=== PATIENT | female | born 1960 | race Caucasian/White ===

== ENCOUNTER 2016-12-31 18:10 | Inpatient (IN) | payer OTHER ==
--- NOTE | ~2016-12-31 | HP ---
Unit #: [id number] #: [id number] Patient: RAFAEL ERWIN [id number] [place] [address] [id number] MR#: [id number] NAME: RAFAEL ERWIN. ROOM: P202 Age: 56 Sex: F Admission Date: 12/31/2016 : 1960 Attending Physician: Steven Randolph M.D. Admitting Physician: Steven Randolph M.D. Primary Care Physician: Primary Care Physician No HISTORY AND PHYSICAL HISTORY OF PRESENT ILLNESS Rafael is a 56 year old admitted to [address] [place] [address] because of her continued drug use. She has had other admissions to this facility for the same. PAST MEDICAL HISTORY Long history of opioid abuse to include snorting heroin. PAST SURGICAL HISTORY Nothing reported. ALLERGIES Talwin, Cipro, Haldol, tramadol. SOCIAL HISTORY Smokes two packs per day. Denies alcohol. Admits to a long history of illicit substance abuse to include methamphetamine and heroin. FAMILY HISTORY Medically noncontributory. REVIEW OF SYSTEMS CONSTITUTIONAL: No fever or chills. HEENT: Denies any sore throat, ear pain or runny nose. CARDIOVASCULAR: Denies chest pain, irregular heart rhythm or palpitations. CHEST: Denies shortness of breath or cough. No hemoptysis. GASTROINTESTINAL: Denies nausea, vomiting, diarrhea or chronic constipation. ENDOCRINE: Denies history of increased thirst or urination. No recent significant weight loss or gain. GENITOURINARY: Denies dysuria, frequency, or hematuria. SKIN: Denies any rashes. HEMATOLOGIC: Denies history of increased bleeding or bruising. MUSCULOSKELETAL: Denies any hot, swollen joints. No generalized muscle pain. NEUROLOGIC: Denies problems with vision or speech. No frequent, severe headaches. No numbness, tingling or weakness in any extremities. Denies loss of bladder or bowel control. CURRENT MEDICATIONS Detox protocol PHYSICAL EXAMINATION Unit #: [id number] #: [id number] Patient: RAFAEL ERWIN GENERAL: Alert, well-nourished, in no apparent distress. VITAL SIGNS: Blood pressure 132/56, heart rate 80, respirations 16, temperature 98.6. WEIGHT: 132 pounds. HEIGHT: 5'8". SKIN: Warm and dry without rash or lesion. HEENT: Normocephalic. TMs not viewed. Oral and nasal passages clear. Conjunctivae clear. Pupils equal, round and reactive to light and accommodation. Extraocular movements intact. NECK: Supple without lymphadenopathy or thyromegaly. HEART: Regular rate and rhythm without murmur. LUNGS: Clear. ABDOMEN: Soft, nontender. : Not done. EXTREMITIES: No evidence of cyanosis, clubbing or edema. Moves all extremities without focal deficit. NEUROLOGICAL: Grossly within normal limits. Cranial Nerves: II: Visual gonzalez are intact. III, IV AND : Extraocular movements are intact. Pupils are equal, round and reactive to light. V: Facial sensation is grossly normal. VII: Facial movements and expression are normal. VIII: Auditory acuity grossly intact. IX, X: Uvula is midline. Phonation is normal. XI: Patient shrugs shoulders and turns head normally. XII: Tongue protrudes in the midline. Sensory and Motor Function: Sensory and motor sensation is grossly normal. Motor: moves all extremities well. Coordination: Gait is normal. Deep Tendon Reflexes: Intact. IMPRESSION Psychiatric admission RECOMMENDATIONS PSYCHIATRIC: Per psychiatrist. MEDICAL: I see no contraindications to participating in facility's activities. MEDICAL PROGNOSIS Good. MEDICAL CONDITION Stable. Dictated by... Nat Morin PRadhaARadha-Soledad. for Geovany Tran/nena TD: 01/01/2017 22:54 JOB #: [id number] Unit #: [id number] #: [id number] Patient: RAFAEL ERWIN HISTORY AND PHYSICAL Page 1 of 1 X Nat Morin HISTORY AND PHYSICAL
--- NOTE | ~2016-12-31 | DS ---
Unit #: [id number] #: [id number] Patient: RAFAEL ERWIN [id number] [place] [address] [id number] MR#: [id number] NAME: RAFAEL ERWIN. ROOM: P202 Age: 56 Sex: F Admission Date: 12/31/2016 : 1960 Discharge Date: 01/02/2017 Attending Physician: Steven Randolph M.D. Primary Care Physician: Primary Care Physician No DISCHARGE SUMMARY REASON FOR ADMISSION Rafael is a 56-year-old woman with history of opioid dependence, who came in a mildly confused state, stating that she had relapsed on her drugs and had vague suicidal ideation. She was unable to contract for safety and was admitted for stabilization. DIAGNOSTIC STUDIES LABORATORY RESULTS: Please see hospital chart. HOSPITAL COURSE Rafael was admitted and placed on the opioid detox protocol. She had no further psychosis or suicidal ideation after admission, and participated appropriately in unit groups and activities. She stated her intention to get into a Suboxone program known as the [facility] and on the date of discharge, she contracted for safety with a plan to follow up to this clinic the following day as she had arranged. DISCHARGE DIAGNOSES AXIS I: Opioid dependence with withdrawal, uncomplicated, F11.23. AXIS II: Diagnosis deferred. AXIS III: Opioid withdrawal, resolved. AXIS IV: AXIS V: DISCHARGE INSTRUCTIONS Follow up with Suboxone Clinic at the patient's discretion. DISCHARGE MEDICATIONS None. CONDITION AT DISCHARGE Fair. PROGNOSIS Fair. DIET AND ACTIVITY Ad buffy. Dictated by... Steven Randolph M.D. Unit #: [id number] #: [id number] Patient: RAFAEL ERWIN [facility]/modl TD: 01/02/2017 23:06 JOB #: [id number] DISCHARGE SUMMARY Page 1 of 1 X Steven Randolph MD X DISCHARGE SUMMARY
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
[~2016-12-31 18:10] MED LIST: ACULAR10 ML OS; ALBUTEROL17 GM INH; AMOXICILLIN PO; AUGMENTIN PO; BACITRACIN30 GM TOP; BACTRIM DS TABL1 TA1 PO; CIPRO PO; DIAZEPAM PO; DICLOFENAC PO; FLEXERIL PO; HYDROCODONE-GU480 ML PO; IBUPROFEN PO; LEVAQUIN PO; METHADONE; METHADONE PO; MOBIC PO; NAPROSYN500 MG PO; NEXIUM; NO MEDICATIONS; NORFLEX100 M1 PO; NORVASC PO; OCUFLOX10 ML OS; PHENERGAN PO; POTASSIUM CHLO10 ME1 PO; PREDNISONE PO; REVIA50 MG; ROBAXIN500 MG PO; RONDEC DROPS30 ML PO; SILVADENE TOP; SKELAXIN PO; SOMA PO; TYLENOL #3 PO; VICODIN 5/500 T1 TAB PO; VISTARIL; ZITHROMAX PO; ZOFRAN ODT4 MG PO
[2017-01-01 09:51] LABS: BASOPHIL# 0.1 X10e3 (0-0.3); BASOPHIL% 1.1 % (0-2.5); EOSINOPHIL# 0.1 X10e3 (0-0.7); EOSINOPHIL% 1.6 % (0.0-7.0); LYMPHOCYTE# 2.2 X10e3 (1.0-3.5); LYMPHOCYTE% 24.4 % (17.0-45.0); MEAN CELL VOLUME 85.7 FL (83-96); MEAN CORPUSCULAR HEMOGLOBIN 28.5 PG (28-34); MEAN CORPUSCULAR HGB CONC 33.3 g/dL (30-36); MEAN PLATELET VOLUME 8.4 FL (6.5-11.5); MONOCYTE# 0.6 X10e3 (0-1.0); MONOCYTE% 6.3 % (3.0-12.0); NEUTROPHIL# 6.1 X10e3 (1.5-7.1); NEUTROPHIL% 66.6 % (40-75); PLATELET COUNT 386 X10e3 (140-420); RED BLOOD COUNT 4.91 X10e (3.90-5.30); RED CELL DISTRIBUTION WIDTH 13.3 % (11.0-15.5); WHITE BLOOD COUNT 9.1 X10e3 (4.0-10.5)
[2017-01-01 09:57] LABS: DIFF IND NO
[2017-01-01 10:09] LABS: ALBUMIN SERUM 4.3 g/dL (3.5-5.0); BILIRUBIN,TOTAL 0.9 mg/dL (0.2-2.0); BUN/CREATININE RATIO 14.16; CALCIUM SERUM 10.2 mg/dL (8.4-10.2); CREATININE SERUM 1.2 mg/dL (0.6-1.4); GLOM FILT RATE Estimated 49.8 mL/min (>60); POTASSIUM 4.3 mmol/L (3.5-5.1); PROTEIN TOTAL SERUM 7.9 g/dL (6.0-8.3)
[2017-01-02 13:32] LABS: AMPHETAMINE POS (NEG); BARBITURATES NEG (NEG); BENZODIAZEPINES POS (NEG); COCAINE NEG (NEG); MARIJUANA NEG (NEG); OPIATES POS (NEG); TRICYCLIC ANTIDEPRESSANTS NEG (NEG); U METHADONE NEG (NEG)
== END 2017-01-02 11:25 | DRG 897 ==
LOC: P2S 18:10
PROVIDERS: Psychiatry & Neurology Psychiatry
PROC: HZ2ZZZZ Detoxification Services for Substance Abuse Treatment (ICD-10-PCS; principal; 2016-12-31)
DX: F11.23 Opioid dependence with withdrawal (principal); F10.10 Alcohol abuse, uncomplicated; I10 Essential (primary) hypertension; F17.210 Nicotine dependence, cigarettes, uncomplicated
CPT/HCPCS: 80053; 80307; 85025; 86592